=== PATIENT | female | born 1995 | race Caucasian/White ===

== ENCOUNTER → 2019-03-09 16:49 | Outpatient (CLI) | payer OTHER, MEDICAID, SELFPAY ==
[2019-03-09 17:11] LABS: Add Manual Diff / Slide Review NO; Basophils Absolute Auto 100 /uL (0-100); Basophils Percent Auto 0.6 % (0-2); Eosinophils Absolute Auto 0 /uL (0-450); Eosinophils Percent Auto 0.3 % (2-4); Hematocrit 41.1 % (36-46); Hemoglobin 13.7 g/dL (12.0-16.0); Lymphocytes Absolute Auto 3100 /uL (1100-4500); Lymphocytes Percent Auto 21.9 % (25-40); Mean Corpuscular HGB Conc 33.2 % (30-36); Mean Corpuscular Hemoglobin 29.9 PG (26-34); Monocytes Absolute Auto 600 /uL (0-900); Monocytes Percent Auto 4.4 % (3-14); Neutrophils Absolute Auto 10400 /uL (1500-7000); Neutrophils Percent Auto 72.8 % (50-75); Platelet Count 321 X10^3/uL (150-400); Red Blood Cell Count 4.57 X10^6/uL (4.0-5.2); Red Cell Distribution Width 12.6 % (11.6-14.8); White Blood Cell Count 14.2 X10^3/uL (4.5-11.0)
[2019-03-09 17:51] LABS: Appearance Urine UA CLEAR; Bilirubin Urine UA NEGATIVE (NEGATIVE); Color Urine UA YELLOW; Glucose Urine UA NEGATIVE (Negative); Ketones Urine UA NEGATIVE (NEGATIVE); Leukocyte Esterase Urine UA NEGATIVE (NEGATIVE); Nitrite Urine UA NEGATIVE (Negative); Occult Blood Urine UA TRACE-LYSED (Negative); Protein Urine UA NEGATIVE (Negative); Specific Gravity Urine UA 1.025 (1.000-1.035); Urobilinogen Urine UA 0.2 E.U./dL (0.2)
[2019-03-09 18:21] LABS: Hepatitis B Surface Antigen NEGATIVE s/c (NEGATIVE); Rubella Antibody IgG 10.8 IU/mL (>15)
[2019-03-09 18:54] LABS: HIV 1 and 2 Antibody NEGATIVE (NEGATIVE); Hep C Virus Ab w/Reflex Quant NEGATIVE s/c (NEGATIVE)
[2019-03-11 23:04] LABS: RPR Screen Nonreactive (Nonreactive)
[2019-03-12 14:54] LABS: Varicella IgG Antibody < 135.00 Index (< 135.00)
== END ==
PROVIDERS: PCP Physician Assistant Medical; Visit Provider Obstetrics & Gynecology
DX: Z34.91 Encounter for supervision of normal pregnancy, unspecified, first trimester (principal)
CPT/HCPCS: 36415; 80055; 81003; 86703; 86787; 86803; 86850; 86900; 86901; 87077; 87086

== ENCOUNTER → 2019-05-12 15:48 | Outpatient (CLI) | payer OTHER, MEDICAID, SELFPAY ==
[2019-05-18 09:17] LABS: AFP, Serum 103.6 ng/mL; Calc Gestational Age 18.3; Cigarette Smoker N; Donated Egg NOT GIVEN; Donor Egg Age NOT GIVEN; Estriol, Free 1.25 ng/mL; Inhibin A, Dimeric 152 pg/mL; Maternal Weight 128 lbs; Number of Fetuses 1; Previous Pregnancy Down Syndro NOT GIVEN; hCG, MoM 1.33; hCG, Serum 34.1 IU/mL
== END ==
PROVIDERS: PCP Physician Assistant Medical; Visit Provider Obstetrics & Gynecology
DX: Z34.02 Encounter for supervision of normal first pregnancy, second trimester (principal); Z3A.18 18 weeks gestation of pregnancy
CPT/HCPCS: 36415; 82105; 82677; 84702; 86336

== ENCOUNTER → 2019-06-20 15:01 | Outpatient (CLI) | payer OTHER, MEDICAID, SELFPAY ==
--- NOTE | 2019-06-20 15:02 | DI.US.S_ITS ---
PROCEDURE: US OB >= 14 WEEKS FETUS INDICATIONS: Anatomic Screen OUTSIDE/PRIOR DATING DATA: Last menstrual period (LMP): 01/04/19. LMP-based estimated date of delivery (SANAZ): 10/11/19. First dating scan (date and location): 03/09/19. Estimated date of delivery (SANAZ) from first dating scan: 10/12/19. TECHNIQUE: Real-time scanning was performed of the fetus, with image documentation and biometric measurements. Endovaginal scanning: Not performed COMPARISON: [facility], , OB >= 14 WEEKS FETUS, 04/12/2019, 14:54. [facility], , US OB <= 14 WEEKS FETUS, 03/15/2019, 11:31. [facility], , OB <= 14 WEEKS FETUS, 03/09/2019, 15:29. [facility], , US OB >= 14 WEEKS FETUS, 05/12/2019, 15:26. FINDINGS: General: A single living intrauterine gestation is present. Presentation: Breech. Placenta: No evidence of previa. Amniotic fluid index: 15.5 cm, normal range is 5-24 cm. heart rate: 137 beats per minute. Maternal cervical canal: 3.9 cm long. Normal lower limit is 2.5 cm. biometrics: Biparietal diameter: 5.7 cm, 23 weeks 3 days Head circumference: 21.0 cm, 23 weeks one day Abdominal circumference: 18.2 cm, 23 weeks zero days Femur length: 4.1 cm, 23 weeks 2 days Estimated gestational age from initial scan: 23 weeks 5 days Composite gestational age from present scan: 23 weeks 2 days Estimated weight and percentile: 570 g, 20th percentile Measurement variability for biometric dating: +/- 7 days from 14 weeks to 15 weeks 6 days gestation, +/- 10 days from 16 weeks to 21 weeks 6 days gestation, +/- 2 weeks from 22 weeks to 27 weeks 6 days gestation, +/- 3 weeks for 28 weeks gestation or later. weight reference: 4500 g or EFW >90/95% is considered macrosomia or large for gestational age. EFW <10% is small for gestational age. EFW 5% or less is considered intra-uterine growth restriction. Anatomic survey: Neuro: Ventricles are non-dilated at less than 10 mm. Cisterna magna is normal at 3-11 mm. Cerebellum is normal in size and morphology. Nuchal skin fold: Normal at less than 6 mm between 14-21 weeks gestational age. Face: Nose and lips, facial profile are normal. Spine: Not well seen due to position. Heart: 4-chambered heart is present, with normal ventricular outflow tracts. Diaphragm: Diaphragm is intact. Stomach: Left-sided stomach is present. Kidneys: No hydronephrosis. Normal is less than 5 mm in 2nd trimester, less than 7 mm in 3rd trimester. Cord: 3-vessel cord has orthotopic insertion. Bladder: Normal in size. Extremities: All 4 extremities identified. IMPRESSION: Single living intrauterine fetus in breech presentation demonstrating expected interval growth as above. spine not well visualized sonographically due to gestational lie. Recommend followup. Remainder of the anatomic survey within normal limits. Dictated by: Homar David M.D. on 06/21/2019 at 16:38 Approved by: Homar David M.D. on 06/21/2019 at 16:43
== END ==
PROVIDERS: PCP Physician Assistant Medical; Visit Provider Obstetrics & Gynecology
DX: Z34.02 Encounter for supervision of normal first pregnancy, second trimester; Z36.3 Encounter for antenatal screening for malformations; Z3A.27 27 weeks gestation of pregnancy
CPT/HCPCS: 76811

== ENCOUNTER → 2019-07-12 11:46 | Outpatient (CLI) | payer OTHER, MEDICAID, SELFPAY ==
[2019-07-12 13:09] LABS: Hematocrit 37.9 % (36-46); Hemoglobin 12.7 g/dL (12.0-16.0)
[2019-07-12 14:28] LABS: GTT (PREG) 1 Hour PP 50gm Dose 127 mg/dL (76-139)
== END ==
PROVIDERS: PCP Physician Assistant Medical; Visit Provider Obstetrics & Gynecology
DX: Z34.02 Encounter for supervision of normal first pregnancy, second trimester (principal); Z3A.26 26 weeks gestation of pregnancy
CPT/HCPCS: 36415; 82950; 85014; 85018

== ENCOUNTER 2019-08-29 17:20 | Outpatient (CLI) | payer OTHER, MEDICAID, SELFPAY | END 2019-08-29 18:05 | disposition home or self-care (01) | LOC: OB 08-30 13:44 | PROVIDERS: PCP Physician Assistant Medical | DX: O36.8130 Decreased fetal movements, third trimester, not applicable or unspecified (principal); Z3A.33 33 weeks gestation of pregnancy | CPT/HCPCS: 59025; G0378; G0379 ==

== ENCOUNTER 2019-09-11 18:37 | Inpatient (IN) | payer OTHER, MEDICAID, SELFPAY ==
[2019-09-11 20:07] VITALS: BP 124/77
[2019-09-11 20:27] LABS: Strep Grp B PCR NEG for Grp B Strep
[2019-09-11] MEDS: LACTATED RINGERS 1,000 ML 100 ML IV (20:45)
[2019-09-11 20:58] LABS: Add Manual Diff / Slide Review NO; Basophils Absolute Auto 100 /uL (0-100); Basophils Percent Auto 0.3 % (0-2); Eosinophils Absolute Auto 100 /uL (0-450); Eosinophils Percent Auto 0.4 % (2-4); Hematocrit 39.2 % (36-46); Hemoglobin 13.2 g/dL (12.0-16.0); Lymphocytes Absolute Auto 3700 /uL (1100-4500); Lymphocytes Percent Auto 19.5 % (25-40); Mean Corpuscular HGB Conc 33.6 % (30-36); Mean Corpuscular Hemoglobin 29.1 PG (26-34); Mean Corpuscular Volume 86.6 fL (80-100); Monocytes Absolute Auto 600 /uL (0-900); Monocytes Percent Auto 3.4 % (3-14); Neutrophils Absolute Auto 14400 /uL (1500-7000); Neutrophils Percent Auto 76.4 % (50-75); Platelet Count 408 X10^3/uL (150-400); Red Blood Cell Count 4.53 X10^6/uL (4.0-5.2); Red Cell Distribution Width 13.1 % (11.6-14.8); White Blood Cell Count 18.9 X10^3/uL (4.5-11.0)
[2019-09-11] MEDS: CEFAZOLIN VIAL 2 GM in SODIUM CHLORIDE 0.9% 100 ML 200 ML IV (21:10)
[2019-09-12] MEDS: FENT 2MCG/ML BUPIV 0.125% EPI 200 MCG/100 ML PLAST..BAG 10 MCG EPIDURAL (03:40)
[2019-09-12] MEDS: LACTATED RINGERS 1,000 ML 100 ML IV ×2 (03:40→08:16)
[2019-09-12] MEDS: CEFAZOLIN VIAL 2 GM in SODIUM CHLORIDE 0.9% 100 ML 200 ML IV (05:03)
[2019-09-12] MEDS: OXYTOCIN PREMIX 30 UNIT/500 ML PLAST..BAG IV (05:03)
[2019-09-12] MEDS: IBUPROFEN 600 MG TABLET PO (18:23)
--- NOTE | 2019-09-12 19:11 | P.PCNOB_ITS ---
Events: Labor < 37 Weeks, Labor Augmentation and Premature Rupture of Membrane Labor & Delivery Delivery date: 09/12/19 Intrapartal events: Intolerance (Deep variables at the end of pushing) Cervical ripening method: none Induction method: none Delivery augmentation: pitocin Delivery monitor: external FHT and external uterine Route of delivery: vacuum extraction Indication for instrumentation: nonreassuring FHR tracing (Deep variable deceleration) Episiotomy description: None L&D Laceration Description: Superficial (Vaginal) Delivery repair: vicryl Estimated blood loss (mL): 100 Anesthesia type: Epidural Complications: None Narrative: Patient complete and pushed for 19 minutes. At 12:17 p.m., a live female infant delivered spontaneously over an intact perineum. No nuchal cord. The remainder of the body delivered without difficulty and was placed on mom's abdomen. The cord was double clamped and cut after it stopped pulsing. Cord bloods were obtained. The placenta delivered intact with a 3 vessel cord at 12:22 p.m.. Pitocin was given in the IV fluids. Fundus was massaged to firm. There was a superficial laceration and the vagina on the left side and this was repaired with 4 0 Vicryl in a running interlocking fashion. Apgars 8 at 1 minute and 9 at 5 minutes. Weight 4 lb 8.9 oz. Epidural analgesia. . Mom and infant stable to recovery. Plan for aftercare: To routine care
[2019-09-13] MEDS: IBUPROFEN 600 MG TABLET PO ×3 (00:33→18:46)
[2019-09-13 07:02] LABS: Hematocrit 34.2 % (36-46); Hemoglobin 11.4 g/dL (12.0-16.0)
--- NOTE | 2019-09-14 06:35 | P.PNOB_ITS ---
Subjective - OB Subjective Patient comments: no complaints [place] baby status: doing well and nursing well [place] feeding status: breast and bottle feeding Narrative: day # 1 status post vacuum assisted vaginal delivery at 35 and 6 7th weeks gestation Date Patient Seen: 09/13/19 Time Patient Seen: 17:30 Exam Vital Signs (past 8 hours): Generally: Patient is sitting up in bed, no acute distress Fundus: Firm at U -2 Extremities: Negative Homans, no edema Objective Labs Result Diagrams: 09/13/19 06:37 Labs: Laboratory Results - last 24 hr 09/13/19 06:37 Hgb 11.4 L Hct 34.2 L Assessment & Plan Plan day: 1 plan OB: routine care Time Spent With Patient Time: Total time spent is greater than 50% in coordination of care (as documented) at patient's floor/unit and/or counseling patient: Time with patient: 15-24 minutes
--- NOTE | 2019-09-14 08:03 | PM.OBDS.1 ---
Discharge Providers Provider Date of admission: 09/11/19 18:37 Discharge Date: 09/14/19 Primary care physician: Andria Gutiérrez PA-C Consults: 09/12/19 15:22 Consult to Physical Chemistry Professor Routine Comment: Discharge provider: Nancy Torres MD Summary Hospital Course Date Patient Seen: 09/14/19 Time Patient Seen: 08:04 Procedures: Vacuum assisted vaginal delivery Epidural analgesia Hospital Course: Patient is a 23-year-old 1 para 1 day # 2 status post vacuum assisted vaginal delivery at 35 and 6 7th weeks gestation. The patient presented with ruptured membranes at 35 and 5 7th weeks gestation she was started on antibiotics. She was started on Pitocin augmentation. She received an epidural for pain management. She progressed to complete dilation. A vacuum was applied due to deep variable decelerations with pushing. Her course was unremarkable. She is discharged home on day # 2. Peripartum Data Delivery Method: Assisted Delivery (Vacuum) Laceration description: Superficial (Left vaginal) Episiotomy description: None Procedures: Vacuum assisted vaginal delivery Epidural analgesia Superficial left vaginal laceration repair complications: none Status at Discharge Cognitive/behavioral status at discharge: oriented Functional status at discharge: independent ambulation Overall status at discharge: patient is progressing back to baseline Time Spent with Patient Time attestation: Total time spent providing and/or coordinating discharge services: Time spent: Less than 30 minutes Objective Labs Result Diagrams: 09/13/19 06:37 Exam Vital Signs (past 8 hours): Generally: Patient is sitting up in bed, nursing , no acute distress Fundus: Firm at U -2 Extremities: Negative Homans, no edema Discharge Plan Discharge Plan Patient Disposition: Home Discharge comment: Call with fever, chills, or bleeding vaginally more than a pad in an hour Ibuprofen 600 mg every 6 hr as needed for cramping Discharge Med Rec/Prescriptions Prescriptions: Continued citalopram [Celexa] 20 mg tablet 20 mg PO DAILY Qty: 30 RF: 5 prenat.vits,lan,hja-qimq-cwjux tablet 1 tab PO DAILY RF: 0 Follow up/Referrals: Nancy Torres MD [Physician] - 6 Weeks Provider Discharge Instructions Diet: Regular Activity: No intercourse Skin/Wound/Dressing Care Report to your healthcare provider any signs of infection, such as:: chills, fever, increased pain and unusual drainage Visit Report/Discharge Packet Instructions: DI for Labor and Delivery, Vaginal Discharge Data Primary Care Provider: Andria Gutiérrez
[2019-09-14] MEDS: PRENATAL VIT,CALC/IRON/FOLIC 1 TABLET 1 TAB PO (09:34)
[2019-09-14] MEDS: DOCUSATE 250 MG CAPSULE PO (09:34)
[2019-09-14] MEDS: IBUPROFEN 600 MG TABLET PO (09:38)
[2019-09-14 09:53] VITALS: BP 109/93; PULSE 93; RESP 16; TEMP 36.6
[2019-09-14] MEDS: MEASLES,MUMPS,RUBELLA VACC/PF 0.5 ML VIAL SUBCUT (17:14)
== END 2019-09-14 17:58 | disposition home or self-care (01) | DRG 560 ==
PROVIDERS: Admitting Provider Obstetrics & Gynecology; PCP Physician Assistant Medical; Visit Provider Obstetrics & Gynecology
DX: O60.14X0 Preterm labor third trimester with preterm delivery third trimester, not applicable or unspecified (principal); O70.0 First degree perineal laceration during delivery; Z37.0 Single live birth; Z3A.35 35 weeks gestation of pregnancy
CPT/HCPCS: 01967; 36415; 59050; 59409; 84112; 85014; 85018; 85025; 86850; 86900; 86901; 87653; G0379; J0690; J2590

== ENCOUNTER → 2020-10-04 12:00 | Outpatient (CLI) | payer OTHER, MEDICAID, SELFPAY ==
[2020-10-04 13:02] LABS: Hematocrit 39.6 % (36-46); Hemoglobin 13.6 g/dL (12.0-16.0); Mean Corpuscular HGB Conc 34.4 % (30-36); Mean Corpuscular Hemoglobin 30.5 PG (26-34); Mean Corpuscular Volume 88.7 fL (80-100); Platelet Count 354 X10^3/uL (150-400); Red Blood Cell Count 4.46 X10^6/uL (4.0-5.2); Red Cell Distribution Width 12.8 % (11.6-14.8); White Blood Cell Count 9.3 X10^3/uL (4.5-11.0)
[2020-10-04 13:54] LABS: TSH w/ Reflex to FT4 1.54 uIU/mL (0.47-4.68)
[2020-10-04 14:57] LABS: Alanine Aminotransferase 10 IU/L (<35); Albumin 4.4 g/dL (3.5-5.0); Albumin Globulin Ratio 1.5 (1.0-2.8); Alkaline Phosphatase 100 U/L (38-126); Aspartate Aminotransferase 20 IU/L (14-36); Bilirubin Total 1.2 mg/dL (0.2-1.3); Blood Urea Nitrogen 8 mg/dL (7-17); Calcium 9.7 mg/dL (8.4-10.2); Carbon Dioxide 29 mmol/L (22-32); Chloride 102 mmol/L (98-107); Estimated Glomerular Filt Rate > 60.0 mL/min (>60); Globulin 2.9 g/dL (1.7-4.1); Glucose 85 mg/dL (70-100); HEMOLYSIS < 15 (0-50); Potassium 4.4 mmol/L (3.4-5.1); Sodium 137 mmol/L (137-145); Total Protein 7.3 g/dL (6.3-8.2)
== END ==
PROVIDERS: PCP Nurse Practitioner Family; Referring Provider Nurse Practitioner Family; Visit Provider Nurse Practitioner Family
DX: Z00.00 Encounter for general adult medical examination without abnormal findings (principal); J45.909 Unspecified asthma, uncomplicated
CPT/HCPCS: 36415; 80053; 84443; 85027

== ENCOUNTER → 2021-12-20 10:46 | Outpatient (CLI) | payer OTHER, MEDICAID, SELFPAY ==
[2021-12-20 11:12] LABS: Hematocrit 41.1 % (36-46); Hemoglobin 13.9 g/dL (12.0-16.0); Mean Corpuscular HGB Conc 33.7 % (30-36); Mean Corpuscular Hemoglobin 29.6 PG (26-34); Mean Corpuscular Volume 87.9 fL (80-100); Platelet Count 410 X10^3/uL (150-400); Red Blood Cell Count 4.68 X10^6/uL (4.0-5.2); Red Cell Distribution Width 12.8 % (11.6-14.8); White Blood Cell Count 7.7 X10^3/uL (4.5-11.0)
[2021-12-20 11:15] LABS: Pregnancy Test Urine Negative (Negative)
[2021-12-20 11:42] LABS: Alanine Aminotransferase 10 IU/L (<35); Albumin 4.9 g/dL (3.5-5.0); Albumin Globulin Ratio 1.6 (1.0-2.8); Alkaline Phosphatase 59 U/L (38-126); Aspartate Aminotransferase 20 IU/L (14-36); BUN Creatinine Ratio 11.3 (6-22); Bilirubin Total 1.5 mg/dL (0.2-1.3); Blood Urea Nitrogen 7 mg/dL (7-17); Calcium 9.9 mg/dL (8.4-10.2); Carbon Dioxide 32 mmol/L (22-32); Chloride 103 mmol/L (98-107); Cholesterol 143 mg/dL (140-199); Estimated Glomerular Filt Rate > 60.0 mL/min (>60); Glucose 93 mg/dL (70-100); HDL Cholesterol 52 mg/dL (40-60); HEMOLYSIS < 15 (0-50); LDL Cholesterol Calculated 76 mg/dL (<100); Potassium 4.1 mmol/L (3.4-5.1); Sodium 142 mmol/L (137-145); Total Protein 7.9 g/dL (6.3-8.2); Triglycerides 74 mg/dL (35-150)
== END ==
PROVIDERS: PCP Nurse Practitioner Family; Referring Provider Nurse Practitioner Family; Visit Provider Nurse Practitioner Family
DX: Z00.00 Encounter for general adult medical examination without abnormal findings (principal); J45.909 Unspecified asthma, uncomplicated
CPT/HCPCS: 36415; 80053; 80061; 81025; 85027

== ENCOUNTER → 2022-02-06 14:42 | Outpatient (CLI) | payer OTHER, MEDICAID, SELFPAY ==
[2022-02-06 16:43] LABS: Hepatitis B Surface Antigen NEGATIVE s/c (NEGATIVE)
[2022-02-06 16:57] LABS: Urine N gonorrhoeae NOT DETECTED
[2022-02-06 17:00] LABS: Hep C Virus Ab w/Reflex Quant NEGATIVE s/c (NEGATIVE)
[2022-02-06 17:12] LABS: Urine Chlamydia NOT DETECTED
[2022-02-06 18:33] LABS: HIV 1 & 2 Ab/Ag 4th Gen Combo NEGATIVE (NEGATIVE)
[2022-02-07 10:19] LABS: HSV 2 IGG AB < 0.91 index (0.00-0.90); HSV1IGG < 0.91 index (0.00-0.90); RPR Screen Non Reactive (Non Reactive)
== END ==
PROVIDERS: PCP Nurse Practitioner Family; Referring Provider Nurse Practitioner Family; Visit Provider Nurse Practitioner Family
DX: Z20.2 Contact with and (suspected) exposure to infections with a predominantly sexual mode of transmission (principal)
CPT/HCPCS: 36415; 86592; 86695; 86696; 86803; 87340; 87389; 87491; 87591

== ENCOUNTER 2022-05-23 11:27 | Emergency (ER) | payer OTHER, MEDICAID, SELFPAY ==
[2022-05-23 11:33] VITALS: BP 139/89; PULSE 95; RESP 16; TEMP 36.8; O2SAT 98; BMI 24.9
[2022-05-23] MEDS: KETOROLAC 10 MG TABLET PO (12:31)
[2022-05-23 12:39] VITALS: BP 125/84; PULSE 88; RESP 18; O2SAT 99
[2022-05-23 12:52] LABS: COVID19 -Nasal RAPID Negative (Negative)
--- NOTE | 2022-05-23 19:10 | ED_ITS ---
HPI - Eye Problem <ALMA Rowan - Last Filed: 05/23/22 19:21> General Chief complaint: Eye Problems Stated complaint: LEFT EYE IRRITATION, RASH ON TORSO Time Seen by Provider: 05/23/22 12:05 Source: patient Mode of arrival: Ambulatory History of Present Illness HPI Narrative: This is a 26-year-old female presents to the emergency department complaint left eye redness, irritation, a rash on her torso which she thinks is psoriasis. Patient endorses a family history of psoriasis, she has had other autoimmune things in her history, she denies trying any creams or lotions on her rash other than Aquaphor. She states that the uncle for keep the from getting too dry. She states that these patchy rash plaques are itchy. She denies any recent fever, she denies any sore throat, cough, runny nose, or symptoms of respiratory illness. Denies any nausea vomiting, denies any other symptoms. Denies any vision changes. Denies any sick contacts. Patient states that she does not currently have a primary care provider but she is looking for one, has not seen dermatology at but is going to establish care and follow-up with dermatology. Related Data Home Medications Medication Instructions Recorded Confirmed prenat.vits,lan,xuj-onpl-fdyhk 1 tab PO DAILY 03/09/19 04/29/22 Previous Rx's Medication Instructions Recorded albuterol sulfate 90 mcg/actuation 2 puff inhalation Q6H PRN 12/18/21 aerosol inhaler shortness of breath or wheezing #8.5 grams montelukast 10 mg tablet 10 mg PO DAILY #90 tabs 12/18/21 (Singulair) levonorgestrel-ethinyl estradiol 1 tab PO DAILY #84 tabs 12/20/21 0.1 mg-20 mcg tablet (Aviane) pregabalin 50 mg capsule 50 mg PO BID #180 caps 02/06/22 sertraline 50 mg tablet 50 mg PO DAILY #180 tabs 02/06/22 Allergies Allergy/AdvReac Type Severity Reaction Status Date / Time No Known Drug Allergies Allergy Verified 04/29/22 11:52 Review of Systems <ALMA Rowan - Last Filed: 05/23/22 19:21> Review of Systems Narrative: General: denies fever, chills Head/Neck: denies headache, neck pain Ears: Denies any ear pain or drainage Eyes: denies visual changes, eye pain, endorses left eye irritation and redness which started today, denies any drainage, states only clear tears Cardio: denies chest pain, palpitations Respiratory: denies shortness of breath, cough GI: denies abdominal pain, nausea, vomiting, or diarrhea : denies dysuria, hematuria or flank pain MSK: denies new joint pain, muscle weakness or swelling Skin: Endorses plaques of itchy raised lesions on her trunk, denies any open wounds Neuro: denies numbness, tingling, dizziness Patient History <ALMA Rowan - Last Filed: 05/23/22 19:21> Medical History ASCUS with positive high risk HPV cervical (01/2022) Asthma (~2007) Encounter for routine gynecological examination (02/06/22) Family history of colonic polyps Genital warts Hemorrhoid (~2018) Oral contraception initial prescription PTSD (post-traumatic stress disorder) Family History Father Mental health problem Mother Hypertension Mental health problem Asthma Grandfather Diabetes mellitus History of heart disease Hypertension Grandmother Cancer Diabetes mellitus History of heart disease Mental health problem Grandfather Multiple sclerosis Social History Smoking Status: Never smoker Smoking Status: Never smoker Substance Use Type: marijuana Exam <ALMA Rowan - Last Filed: 05/23/22 19:21> Narrative Exam Narrative: Independently reviewed vitals signs and nursing notes. General: cooperative, comfortable, in no acute distress, well groomed Head: atraumatic, symmetrical facial expressions Neck: supple Eyes: equal round and reactive, EOMI, conjunctiva injected on the left, normal on right, left scleral injection without exudate, no visible corneal abrasion on fluorescein exammost likely conjunctivitis Nose: nares patent, no rhinorrhea Mouth/Throat: moist mucus membranes Cardiovascular: regular rate and rhythm, no peripheral edema, warm extremities Respiratory: normal effort, able to speak in complete sentences, no audible wheezing, stridor, or rales. No retractions or tachypnea. GI: abdomen soft, nontender to palpation, nondistended, no masses, no exquisite tenderness with exam, without guarding or rebound. MSK: moves all extremities, neurovascularly intact, no weakness, normal tone Skin: brisk capillary refill, five erythematous plaques and papules on her trunk with a silvery scale, pruritic, no surrounding erythema, no fluctuance, no petechia Neuro: normal speech and cognition, A&O x3 Psych: mental status is grossly normal, congruent mood, normal affect, pleasant and cooperative Initial Vital Signs Initial Vital Signs: Vital Signs Temperature 98.3 F 05/23/22 11:33 Pulse Rate 95 H 05/23/22 11:33 Respiratory Rate 16 05/23/22 11:33 Blood Pressure 139/89 05/23/22 11:33 Pulse Oximetry 98 05/23/22 11:33 Oxygen Delivery Method 05/23/22 11:33 <Keyur Mendez MD - Last Filed: 06/10/22 11:10> Initial Vital Signs Initial Vital Signs: Vital Signs Temperature 98.3 F 05/23/22 11:33 Pulse Rate 95 H 05/23/22 11:33 Respiratory Rate 16 05/23/22 11:33 Blood Pressure 139/89 05/23/22 11:33 Pulse Oximetry 98 05/23/22 11:33 Oxygen Delivery Method 05/23/22 11:33 Course <ALMA Rowan - Last Filed: 05/23/22 19:21> Orders Ordered: Discontinued Medications Ketorolac Tromethamine (Ketorolac 10 Mg Tablet) 10 mg PO NOW ONE Stop: 05/23/22 12:19 Last Admin: 05/23/22 12:31 Dose: 10 mg Documented By: ANDRE Vital Signs Vital signs: Vital Signs - 8 hr 05/23/22 11:33 05/23/22 12:39 Temperature 98.3 F Pulse Rate 95 H 88 Respiratory Rate 16 18 Blood Pressure 139/89 125/84 Pulse Oximetry 98 99 Oxygen Delivery Method Room Air Room Air <Keyur Mendez MD - Last Filed: 06/10/22 11:10> Orders Ordered: Discontinued Medications Ketorolac Tromethamine (Ketorolac 10 Mg Tablet) 10 mg PO NOW ONE Stop: 05/23/22 12:19 Last Admin: 05/23/22 12:31 Dose: 10 mg Documented By: ANDRE Vital Signs Vital signs: Vital Signs - 8 hr 05/23/22 11:33 05/23/22 12:39 Temperature 98.3 F Pulse Rate 95 H 88 Respiratory Rate 16 18 Blood Pressure 139/89 125/84 Pulse Oximetry 98 99 Oxygen Delivery Method Room Air Room Air MDM - Eye Problem <ALMA Rowan - Last Filed: 05/23/22 19:21> Lab Data Labs: Lab Results 05/23/22 Range/Units 12:30 SARS-CoV-2 (PCR) Negative (Negative) MDM Narrative Medical decision making narrative: This is a pleasant 26-year-old female presents to the emergency department complaining of a rash on her trunk which is been there for a week or longer and has been worsening, as well as left eye irritation which started this morning. She denies any recent fever or other symptoms. Patient's COVID PCR is negative today, her erythematous papules and plaques appear like psoriasis, there is a family history of psoriasis, it appears only to be on her trunk, her left eye conjunctivitis could be also related to her autoimmune flare. Encourage patient to follow-up with dermatology and find a primary care provider within her insurance. [facility] was shared with her if she would like to follow-up with them. Patient was prescribed triamcinolone for topical steroid treatment of her psoriasis, and erythromycin ointment for her left eye conjunctivitis although she understands this is likely either viral or related to autoimmune skin disorder. Recommend patient follow-up with her primary care provider and return to the emergency department for any worsening of her symptoms. She was prescribed ketorolac p.o. for pain and erythromycin ointment for her eye. Patient is appropriate and amenable to discharge home. Vital signs are stable on repeat examination is unremarkable. Patient has been i nformed of results. Patient has been given strict return to ER precautions for any new or worsening symptoms. Patient understands to follow up closely with outpatient providers as instructed. Patient understands plan and agrees to discharge home. All questions and concerns answered at this time. <Keyur Mendez MD - Last Filed: 06/10/22 11:10> Lab Data Labs: Lab Results 05/23/22 Range/Units 12:30 SARS-CoV-2 (PCR) Negative (Negative) Discharge Plan Departure Patient Disposition: Home Clinical Impression: Psoriasis (a type of skin inflammation), Conjunctivitis associated with autoimmune skin disorder Instructions: Conjunctivitis, DI for Psoriasis Activity Restrictions/Additional Instructions: *You have been diagnosed with psoriasis and likely psoriasis related conjunctivitis. Please establish care with a primary care provider and get a referral to Dermatology near you. Try this appointment up to 2 times daily until it starts to improve, take a holiday over the weekend, and wear sunscreen. Stay hydrated, take anti-inflammatories with food and water, we will call you if your COVID test is positive. Please use decongestants as needed, Tylenol and Toradol, do not mix with ibuprofen please. I hope you feel better soon *What to do: *Please continue to take your regular medications as directed. [x ] New medication prescriptions sent to your pharmacy: [ [facility]] [ ] New medication written as a paper prescription [ ] No new medications given *Please follow up with your primary care provider in 2-3 days, call for an appointment. Let them know you were seen in the Emergency Department and that we asked that you be seen for follow-up. We will electronically transmit a record of today's note if your PCP is in our system *If you do not have a primary care provider please contact [phone] to establish care with one of the [facility] primary care providers. *Return to Emergency Department if you should have any new, worsening or concerning symptoms, such as [fever greater than 101F, chills, worsening pain, persistent vomiting or other bothersome symptoms] Prescriptions: No Action levonorgestrel-ethinyl estrad [Aviane] 0.1-20 mg-mcg tablet 1 tab PO DAILY Qty: 84 3RF prenat.vits,lan,nnz-[id number]-[id number] tablet 1 tab PO DAILY montelukast [Singulair] 10 mg tablet 10 mg PO DAILY Qty: 90 2RF albuterol sulfate 90 mcg/actuation HFA aerosol inhaler 2 puff inhalation Q6H PRN (Reason: shortness of breath or wheezing) Qty: 8.5 2RF pregabalin 50 mg capsule 50 mg PO BID Qty: 180 1RF sertraline 50 mg tablet 50 mg PO DAILY Qty: 180 1RF Rx Instructions: please start with 50mg daily then increase to 100mg daily after one week Referrals: Devin Guzman ARNP [Primary Care Provider] - Visit Report Forms: Patient Portal/API <Keyur Mendez MD - Last Filed: 06/10/22 11:10> Cosign ED Attending Cosradhaature Attestation: I was immediately available for consultation of this patient was seen and evaluated by the APC in the department.
== END 2022-05-23 12:40 | disposition home or self-care (01) ==
PROVIDERS: Emergency Provider Nurse Practitioner Critical Care Medicine; PCP Nurse Practitioner Family
DX: L40.9 Psoriasis, unspecified (principal); H10.89 Other conjunctivitis; Z20.822 Contact with and (suspected) exposure to COVID-19
CPT/HCPCS: 87635; 99283; C9803

== ENCOUNTER → 2024-02-09 14:37 | Outpatient (CLI) | payer OTHER, MEDICAID, SELFPAY ==
[2024-02-09 15:13] LABS: Add Manual Diff / Slide Review NO; Basophils Absolute Auto 100 /uL (0-100); Basophils Percent Auto 0.8 % (0-2); Eosinophils Absolute Auto 600 /uL (0-450); Eosinophils Percent Auto 6.2 % (2-4); Hematocrit 41.9 % (36-46); Hemoglobin 14.1 g/dL (12.0-16.0); Lymphocytes Absolute Auto 3600 /uL (1100-4500); Mean Corpuscular HGB Conc 33.7 % (30-36); Mean Corpuscular Hemoglobin 30.7 PG (26-34); Mean Corpuscular Volume 90.9 fL (80-100); Monocytes Absolute Auto 500 /uL (0-900); Monocytes Percent Auto 4.7 % (3-14); Neutrophils Absolute Auto 5200 /uL (1500-7000); Neutrophils Percent Auto 52.3 % (50-75); Platelet Count 346 X10^3/uL (150-400); Red Blood Cell Count 4.61 X10^6/uL (4.0-5.2); Red Cell Distribution Width 13.2 % (11.6-14.8)
[2024-02-09 15:25] LABS: Alanine Aminotransferase 14 IU/L (<35); Albumin 4.7 g/dL (3.5-5.0); Albumin Globulin Ratio 1.3 (1.0-2.8); Alkaline Phosphatase 58 U/L (38-126); Aspartate Aminotransferase 22 IU/L (14-36); BUN Creatinine Ratio 18.6 (6-22); Bilirubin Total 0.9 mg/dL (0.2-1.3); Blood Urea Nitrogen 11 mg/dL (7-17); Calcium 9.3 mg/dL (8.4-10.2); Carbon Dioxide 28 mmol/L (22-32); Chloride 104 mmol/L (98-107); Estimated Glomerular Filt Rate > 60 mL/min (>60); Globulin 3.5 g/dL (1.7-4.1); Glucose 89 mg/dL (70-100); HEMOLYSIS < 15 (0-50); Potassium 3.7 mmol/L (3.4-5.1); Sodium 140 mmol/L (137-145); Total Protein 8.2 g/dL (6.3-8.2)
[2024-02-09 15:56] LABS: HEMOLYSIS < 15 (0-50); Iron 74 ug/dL (37-170)
[2024-02-09 16:08] LABS: Percent Iron Saturation 22 % (15-50); Total Iron Binding Capacity 331 ug/dL (265-497); Transferrin 274 mg/dL (206-381)
[2024-02-09 16:12] LABS: Vitamin B12 350 pg/mL (239-931)
[2024-02-09 16:28] LABS: TSH w/ Reflex to FT4 3.67 uIU/mL (0.47-4.68)
== END ==
PROVIDERS: PCP Family Medicine; Referring Provider Physician Assistant; Visit Provider Physician Assistant
DX: R53.83 Other fatigue (principal)
CPT/HCPCS: 36415; 80053; 82607; 83540; 83550; 84443; 85025

== ENCOUNTER → 2024-06-14 12:11 | Outpatient (CLI) | payer OTHER, MEDICAID, SELFPAY ==
[2024-06-14 13:07] LABS: Add Manual Diff / Slide Review NO; Basophils Absolute Auto 100 /uL (0-100); Basophils Percent Auto 0.6 % (0-2); Eosinophils Absolute Auto 100 /uL (0-450); Hematocrit 43.5 % (36-46); Hemoglobin 14.7 g/dL (12.0-16.0); Lymphocytes Absolute Auto 2500 /uL (1100-4500); Lymphocytes Percent Auto 22.1 % (25-40); Mean Corpuscular HGB Conc 33.8 % (30-36); Mean Corpuscular Hemoglobin 30.7 PG (26-34); Mean Corpuscular Volume 90.8 fL (80-100); Monocytes Absolute Auto 600 /uL (0-900); Monocytes Percent Auto 4.9 % (3-14); Neutrophils Absolute Auto 8000 /uL (1500-7000); Neutrophils Percent Auto 71.4 % (50-75); Platelet Count 411 X10^3/uL (150-400); Red Blood Cell Count 4.79 X10^6/uL (4.0-5.2); Red Cell Distribution Width 13.3 % (11.6-14.8); White Blood Cell Count 11.2 X10^3/uL (4.5-11.0)
[2024-06-14 14:21] LABS: TSH w/ Reflex to FT4 2.12 uIU/mL (0.47-4.68)
[2024-06-14 14:37] LABS: Alanine Aminotransferase 18 IU/L (<35); Albumin Globulin Ratio 1.7 (1.0-2.8); Alkaline Phosphatase 71 U/L (38-126); Aspartate Aminotransferase 22 IU/L (14-36); BUN Creatinine Ratio 13.6 (6-22); Bilirubin Total 1.4 mg/dL (0.2-1.3); Blood Urea Nitrogen 9 mg/dL (7-17); Calcium 9.6 mg/dL (8.4-10.2); Carbon Dioxide 25 mmol/L (22-32); Chloride 104 mmol/L (98-107); Estimated Glomerular Filt Rate > 60 mL/min (>60); Glucose 98 mg/dL (70-100); HEMOLYSIS < 15 (0-50); Potassium 3.9 mmol/L (3.4-5.1); Sodium 139 mmol/L (137-145)
[2024-06-14 15:29] LABS: Vitamin D 25 Hydroxy (D3) 29.8 ng/mL (30.0-100.0)
== END ==
PROVIDERS: PCP Family Medicine; Referring Provider Family Medicine; Visit Provider Family Medicine
DX: M79.89 Other specified soft tissue disorders (principal)
CPT/HCPCS: 36415; 80053; 82306; 84443; 85025